=== PATIENT | male | born 1990 | race Caucasian/White ===

== ENCOUNTER → 2021-12-03 | Outpatient (CLI) | payer OTHER ==
[2021-12-03 18:33] LABS: Basophils # (A) 0.05 X 10*3/uL (0.00-0.10); Basophils % (A) 0.8 %; Eosinophils # (A) 0.24 X 10*3/uL (0.04-0.35); Eosinophils % (A) 3.8 %; HCT 42.3 % (39.6-50.0); Immature Grans, Automated 0.2 %; Lymphocytes # (A) 2.15 X 10*3/uL (0.90-5.00); MCH 29.9 pg (27.0-32.0); MCHC 35.5 g/dL (32.0-37.0); MCV 84.3 fL (80.0-97.0); Mean Platelet Volume 10.8 fL (9.5-12.2); Monocytes # (A) 0.45 X 10*3/uL (0.20-1.00); Monocytes % (A) 7.1 %; NRBC Per 100 WBC 0 /100 WBCS (0.0-0.0); Neutrophils # (A) 3.43 X 10*3/uL (1.80-7.70); Neutrophils % (A) 54.1 %; Platelet Count 248 X 10*3/uL (140-440); RBC 5.02 X 10*6/uL (4.40-5.60); RDW 11.8 % (11.5-14.5); WBC 6.33 X 10*3/uL (4.50-10.00)
[2021-12-03 18:42] LABS: ALT 15 U/L (10-49); AST 27 U/L (14-35); African American GFR (CKD) 117.4 (60.0-200.0); Albumin 5.1 g/dL (3.8-4.9); Albumin/Globulin Ratio 1.96 (1.60-3.17); Alkaline Phosphatase 77 U/L (41-126); Blood Urea Nitrogen 11.6 mg/dL (9.0-27.0); Carbon Dioxide 25.8 mmol/L (20.0-27.5); Chloride 103 mmol/L (96-109); Chol/HDL Ratio 4.46 Ratio; Globulin 2.6 g/dL (1.6-3.3); Glucose 86 mg/dL (70-110); LDL Cholesterol,Calculated 106.4 mg/dL (0.0-131.0); Non-African American GFR(CKD) 101.3 (60.0-200.0); Potassium 4.2 mmol/L (3.5-5.5); Sodium 141 mmol/L (135-145); Total Protein 7.7 g/dL (6.2-8.2)
== END | disposition home or self-care (01) ==
LOC: LABWHC1 11:31
PROVIDERS: ATTEND Family Medicine
DX: Z00.00 Encounter for general adult medical examination without abnormal findings (principal); Z11.59 Encounter for screening for other viral diseases
CPT/HCPCS: 36415; 80053; 80061; 84443; 85025; 86803

== ENCOUNTER 2022-01-13 12:07 | Inpatient (IN) | payer MEDICAID, OTHER ==
--- NOTE | 2022-01-13 13:53 | ED ---
General Adult HPI - General Chief complaint: Psychiatric Symptoms Stated complaint: Petition Time Seen by Provider: 01/13/22 13:35 Source: patient, police, RN notes reviewed, old records reviewed Mode of arrival: ambulatory Limitations: no limitations - History of Present Illness Initial comments: This is a 31-year-old male presents emergency Department under a court order. Mother has petitioned the patient to be evaluated. According to the petition patient is become obsessed with cleaning and continually bug bombs the house which is upsetting to the family. Patient also may statement to the grandmother that he was going to kill his parents. Patient states he didn't mean that he was just saying it because he was upset with his parents. Patient denies needing to be here he states he feels fine he is just trying to keep the area of the house that he lives in clean dizziness afraid of getting bedbugs again. Patient denies any suicidal or homicidal ideations. Patient states he did spend [facility] in [facility]. Patient states he smokes pot but denies any other drug use denies any alcohol. Patient denies any physical complaints today. - Related Data Home Medications Medication Instructions Recorded Confirmed Triamcinolone 0.1% Cream [Kenalog 1 applic TOPICAL BID 01/13/22 01/13/22 0.1% Cream] Allergies Allergy/AdvReac Type Severity Reaction Status Date / Time No Known Allergies Allergy Verified 01/13/22 14:22 Review of Systems ROS Statement: Those systems with pertinent positive or pertinent negative responses have been documented in the HPI. ROS Other: All systems not noted in ROS Statement are negative. Past Medical History Past Medical History: Unable to Obtain Past Surgical History: Tonsillectomy Past Psychological History: Unable to Obtain Smoking Status: Current some day smoker Past Alcohol Use History: Occasional Past Drug Use History: Marijuana General Exam - General Exam Comments Initial Comments: GENERAL: Patient is well-developed and well-nourished. Patient is nontoxic and well- hydrated and is in mild distress. ENT: Neck is soft and supple. No significant lymphadenopathy is noted. Oropharynx is clear. Moist mucous membranes. Neck has full range of motion without eliciting any pain. EYES: The sclera were anicteric and conjunctiva were pink and moist. Extraocular movements were intact and pupils were equal round and reactive to light. Eyelids were unremarkable. PULMONARY: Unlabored respirations. Good breath sounds bilaterally. No audible rales rhonchi or wheezing was noted. CARDIOVASCULAR: There is a regular rate and rhythm without any murmurs gallops or rubs. ABDOMEN: Soft and nontender with normal bowel sounds. SKIN: Skin is clear with no lesions or rashes and otherwise unremarkable. NEUROLOGIC: Patient is alert and oriented x3. Cranial nerves II through XII are grossly intact. Motor and sensory are also intact. Normal speech, volume and content. Symmetrical smile. MUSCULOSKELETAL: Normal extremities with adequate strength and full range of motion. LYMPHATICS: No significant lymphadenopathy is noted PSYCHIATRIC: Normal psychiatric evaluation. Patient denies wanting to harm anybody else or himself. Limitations: no limitations Course Vital Signs 01/13/22 13:07 Temperature 98.6 F Pulse Rate 64 Respiratory 20 Rate Blood Pressure 146/90 O2 Sat by Pulse 100 Oximetry Medical Decision Making - Medical Decision Making EPS evaluated the patient and determined the patient needed to be admitted. I did fill out a clinical certification on the patient. - Lab Data Lab Results 01/13/22 01/13/22 Range/Units 13:49 17:30 Urine Opiates Screen Not Detected (NotDetected) Ur Oxycodone Screen Not Detected (NotDetected) Urine Methadone Screen Not Detected (NotDetected) Ur Propoxyphene Screen Not Detected (NotDetected) Ur Barbiturates Screen Not Detected (NotDetected) U Tricyclic Antidepress Not Detected (NotDetected) Ur Phencyclidine Scrn Not Detected (NotDetected) Ur Amphetamines Screen Not Detected (NotDetected) U Methamphetamines Scrn Not Detected (NotDetected) U Benzodiazepines Scrn Not Detected (NotDetected) Urine Cocaine Screen Not Detected (NotDetected) U Marijuana (THC) Screen Detected H (NotDetected) Coronavirus (PCR) Not Detected (Not Detectd) Disposition Clinical Impression: Acute psychosis Disposition: ADMITTED IP TO THIS HOSP Referrals: Prashant Arnold MD [Primary Care Provider] - 1-2 days Time of Disposition: 17:58
[2022-01-13 14:51] LABS: Amphetamine Screen,Urine Not Detected (NotDetected); Barbiturate Screen,Urine Not Detected (NotDetected); Benzodiazepines Screen,Urine Not Detected (NotDetected); Cocaine Screen,Urine Not Detected (NotDetected); Methadone Screen, Urine Not Detected (NotDetected); Opiate Screen,Urine Not Detected (NotDetected); Oxycodone Screen, Urine Not Detected (NotDetected); Phencyclidine Screen,Urine Not Detected (NotDetected); Tricyclic Antidepressant,Urine Not Detected (NotDetected); Urn Cannabinoid Scrn Detected (NotDetected)
[2022-01-13] MEDS ORDERED: MAG HYDROX/AL HYDROX/SIMETH 30 ML CUP PO PRN (19:47)
[2022-01-13] MEDS ORDERED: ACETAMINOPHEN TAB 325 MG TAB PO PRN (19:47)
[2022-01-13] MEDS ORDERED: HALOPERIDOL LACTATE 5 MG/ML 1 ML VIAL IM PRN (19:47)
[2022-01-13] MEDS ORDERED: MAGNESIUM HYDROXIDE 2,400 MG/10 ML CUP PO PRN (19:47)
[2022-01-13] MEDS ORDERED: LORazepam 2 MG/ML INJ IM PRN (19:49)
[2022-01-14 05:45] LABS: Appearance,Urine Clear (Clear); Bilirubin,Urine Negative (Negative); Blood,Urine Negative (Negative); Color,Urine Colorless; Glucose,Urine (UA) Negative (Negative); Ketones,Urine Negative (Negative); Leukocyte Esterase,Urine Negative (Negative); Nitrite,Urine Negative (Negative); Protein,Urine Negative (Negative); Specific Gravity,Urine 1.009 (1.001-1.035); Urobilinogen,Urine <2.0 mg/dL (<2.0)
[2022-01-14] MEDS: NICOTINE 14MG/24HR PATCH TRANSDERM SCH (09:23)
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
--- NOTE | 2022-01-15 01:03 | P.MDCNMH ---
History of Present Illness H&P Date: 01/14/22 Past Medical History Past Medical History: Unable to Obtain Past Surgical History: Tonsillectomy Past Psychological History: Unable to Obtain Smoking Status: Current some day smoker Past Alcohol Use History: Occasional Past Drug Use History: Marijuana Medications and Allergies Home Medications Medication Instructions Recorded Confirmed Type Triamcinolone 0.1% Cream [Kenalog 1 applic TOPICAL BID 01/13/22 01/13/22 History 0.1% Cream] Allergies Allergy/AdvReac Type Severity Reaction Status Date / Time No Known Allergies Allergy Verified 01/13/22 14:22 Physical Exam Vitals: Vital Signs Temp Pulse Resp BP Pulse Ox 01/13/22 21:31 97.5 F L 52 L 16 132/82 98
--- NOTE | 2022-01-15 12:38 | P.PN ---
Progress Note - Text Progress Note Date: 01/15/22 Interval History: Patient was seen wandering the hallways and was directable and agreeable to speak with telegraphic typewriter operator in the office. Currently, the patient is not reporting any suicidal or homicidal ideation, intention, and/or plan. He denies any auditory or visual hallucinations. He reports no paranoia or other delusions. He continues to desire no medications. He reports that he will wait for the court to decide this. However, he states that if he was to be court-ordered medications, he will take medications willingly. He denies any issues with sleep or appetite. She does not express any concerns for bug infestation at this time. Mental Status Exam: General Appearance: Patient appears to be stated age is alert, directable, and cooperative. Behavior: Patient is calmly seated without any agitated behavior. Speech: Patient's speech is fluent and nonpressured. Mood/Affect: Mood is improving mildly, affect is congruent and constricted. Suicidality/Homicidality: Patient denies having any suicidal or homicidal ideation intent or plan. Perceptions: Patient denies any visual hallucinations and denies any auditory hallucinations Though content/process: There is no evidence of any delusional thought content and thought process is linear and goal-directed. Memory and concentration: AOX3, grossly intact for the purposes of this session Judgment and insight: Improving mildly Vital Signs Temp 97.9 F 01/15/22 06:44 Pulse 61 01/15/22 06:44 Resp 16 01/15/22 06:44 BP 111/64 01/15/22 06:44 Pulse Ox 98 01/13/22 21:31 FiO2 Assessment Acute psychosis - suspect cannabis induced psychosis versus underlying chronic schizophrenia/bipolar disorder Cannabis use disorder Plan: -Patient continues to meet criteria for inpatient psychiatric admission for symptom stabilization and safety. The patient has been petitioned and certified. -Medications: Patient is refusing any medications at this time. We are awaiting a court hearing. -When necessary Ativan and Haldol for agitation/aggression. -NRT - nicotine patch -SW on board for discharge planning. Encouraged the patient to participate in milieu.
[2022-01-15] MEDS: NICOTINE 14MG/24HR PATCH TRANSDERM SCH (15:32)
[2022-01-16] MEDS: NICOTINE 14MG/24HR PATCH TRANSDERM SCH (10:03)
--- NOTE | 2022-01-16 20:05 | P.PN ---
Progress Note - Text Progress Note Date: 01/16/22 Interval history: Patient was seen wandering the hallways, and is superficially cooperative on evaluation. He reports good mood and denies any concerns at this time, appears guarded but polite. He is currently refusing medications and is awaiting court. At this time, patient denies any suicidal or homicidal ideation, intent or plan. Denies any auditory or visual hallucinations. Mental status exam: General Appearance: Patient appears to be stated age, dressed in hospital gown, fair grooming and hygiene. Behavior: Patient is calm without any agitated behavior. Speech: Patient's speech is fluent and non-pressured. Mood/Affect: Patient reports their mood is "good", affect is congruent and euthymic. Suicidality/Homicidality: Patient denies having any homicidal ideation intent or plan. He denies any suicidal ideation, intent or plan. Perceptions: Patient denies any visual hallucinations and denies any auditory hallucinations. Though content/process: No delusional thoughts expressed to me today. Thoughts are linear. Memory and concentration: AOX3, grossly intact for the purposes of this session. Judgment and insight: improving Assessment/Plan: Continue with current diagnosis. Patient continues to meet criteria for inpatient psychiatric admission for symp vicky stabilization and safety. Patient will be maintained on current psychotropic medication regimen. Monitor for medication compliance and for any psychotropic medication side effects. Will continue to monitor ongoing response to treatment. Encouraged participation in milieu.
[2022-01-17] MEDS: LORazepam 1 MG TAB PO PRN ×3 (02:52→19:10)
[2022-01-17] MEDS: haloperidoL 5 MG TAB PO PRN ×2 (03:52→19:40)
[2022-01-17] MEDS: NICOTINE 14MG/24HR PATCH TRANSDERM SCH (08:57)
--- NOTE | 2022-01-17 15:09 | P.PN ---
Progress Note - Text Progress Note Date: 01/17/22 Interval history: Patient was seen attending group and is agreeable to speaking with this assembly instructions writer. He reports good mood and denies any concerns at this time, appears guarded but polite. He is currently refusing to start scheduled medications, but last night he did accept PRN Haldol 5 mg po x1 at around 4am and PRN Ativan 2 mg po x1 at around 9am due to being upset over a roommate issue. He has been calm so far today since receiving these medications overnight, however is still guarded. At this time, patient denies any suicidal or homicidal ideation, intent or plan. Denies any auditory or visual hallucinations. He denies medication side effects. Mental status exam: General Appearance: Patient appears to be stated age, dressed in hospital gown, fair grooming and hygiene. Behavior: Patient is calm without any agitated behavior, still guarded. Speech: Patient's speech is fluent and non-pressured. Mood/Affect: Patient reports their mood is "good", affect is congruent and euthymic. Suicidality/Homicidality: Patient denies having any homicidal ideation intent or plan. He denies any suicidal ideation, intent or plan. Perceptions: Patient denies any visual hallucinations and denies any auditory hallucinations. Though content/process: No delusional thoughts expressed to me today. Thoughts are linear. Memory and concentration: AOX3, grossly intact for the purposes of this session. Judgment and insight: improving Assessment/Plan: Continue with current diagnosis. Patient continues to meet criteria for inpatient psychiatric admission for symptom stabilization and safety. Patient will be maintained on current psychotropic medication regimen. Monitor for medication compliance and for any psychotropic medication side effects. Will continue to monitor ongoing response to treatment. Encouraged participation in milieu.
[2022-01-18] MEDS: LORazepam 1 MG TAB PO PRN ×3 (08:43→21:44)
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
[2022-01-18] MEDS: DIVALPROEX ER 500 MG TAB.ER.24H PO SCH (19:59)
[2022-01-18] MEDS: haloperidoL 5 MG TAB PO PRN (20:00)
[2022-01-19 06:34] VITALS: PULSE 79; RESP 14; TEMP 97.6
[2022-01-19 08:22] VITALS: BP 125/79
[2022-01-19] MEDS: LORazepam 1 MG TAB PO PRN (08:22)
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
[2022-01-19] MEDS ORDERED: LORazepam 1 MG TAB PO PRN (12:13)
[2022-01-19] MEDS ORDERED: LORazepam 2 MG/ML INJ IM PRN (12:13)
[2022-01-19] MEDS: DIVALPROEX ER 500 MG TAB.ER.24H PO SCH (20:05)
[2022-01-20 11:17] LABS: ALT 19 U/L (4-49); AST 34 U/L (17-59); African American GFR (CKD) >90 (>60 ml/min/1.73 sqM); Albumin 5.1 g/dL (3.5-5.0); Alkaline Phosphatase 66 U/L (38-126); Anion Gap 16 mmol/L; Blood Urea Nitrogen 11 mg/dL (9-20); Carbon Dioxide 25 mmol/L (22-30); Chloride 98 mmol/L (98-107); Glucose 89 mg/dL (74-99); Non-African American GFR(CKD) >90 (>60 ml/min/1.73 sqM); Potassium 3.9 mmol/L (3.5-5.1); Sodium 139 mmol/L (137-145); Total Bilirubin 0.7 mg/dL (0.2-1.3); Total Protein 7.6 g/dL (6.3-8.2)
[2022-01-20 11:22] LABS: Valproic Acid (Depakene) 81.3 ug/mL
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
== END 2022-01-20 14:02 | disposition home or self-care (01) | DRG 885 ==
LOC: EC 12:07 → 3MHU 19:43
PROVIDERS: ADMIT Psychiatry & Neurology Psychiatry; ATTEND Psychiatry & Neurology Psychiatry
DX: F23 Brief psychotic disorder (principal); F12.90 Cannabis use, unspecified, uncomplicated; F16.90 Hallucinogen use, unspecified, uncomplicated; F17.200 Nicotine dependence, unspecified, uncomplicated; Z87.820 Personal history of traumatic brain injury; Z91.410 Personal history of adult physical and sexual abuse; Z20.822 Contact with and (suspected) exposure to COVID-19
CPT/HCPCS: 80053; 80164; 80306; 81003; 82075; 87635; 99285

== ENCOUNTER → 2022-11-10 | Outpatient (CLI) | payer OTHER ==
[2022-11-10 15:36] LABS: Basophils # (A) 0.03 X 10*3/uL (0.00-0.10); Basophils % (A) 0.6 %; Eosinophils # (A) 0.27 X 10*3/uL (0.04-0.35); Eosinophils % (A) 5.5 %; HCT 41.3 % (39.6-50.0); HGB 14.2 d/dL (12.0-15.0); Lymphocytes # (A) 1.71 X 10*3/uL (0.90-5.00); Lymphocytes % (A) 35.1 %; MCH 29.5 pg (27.0-32.0); MCHC 34.4 d/dL (32.0-37.0); MCV 85.9 FL (80.0-97.0); Mean Platelet Volume 10.7 FL (9.5-12.2); Monocytes # (A) 0.43 X 10*3/uL (0.20-1.00); Monocytes % (A) 8.8 %; NRBC Per 100 WBC 0 X 10*3/uL (0.00-0.01); Neutrophils # (A) 2.42 X 10*3/uL (1.80-7.70); Neutrophils % (A) 49.8 %; Platelet Count 211 X 10*3/uL (140-440); RBC 4.81 X 10*6/uL (4.40-5.60); RDW 11.4 % (11.5-14.5); WBC 4.87 X 10*3/uL (4.50-10.00)
[2022-11-10 16:11] LABS: ALT 18 U/L (10-49); AST 22 U/L (14-35); Albumin 4.8 d/dL (3.8-4.9); Albumin/Globulin Ratio 2.09 Ratio (1.60-3.17); Alkaline Phosphatase 68 U/L (41-126); Blood Urea Nitrogen 8.2 mg/dL (9.0-27.0); Calcium 9.9 mg/dL (8.7-10.3); Carbon Dioxide 27.9 mmol/L (21.6-31.8); Chloride 102 mmol/L (96-109); Chol/HDL Ratio 3.43 Ratio; Globulin 2.3 d/dL (1.6-3.3); Glucose 90 mg/dL (70-110); LDL Cholesterol,Calculated 67.6 mg/dL (0.0-131.0); Potassium 4.9 mmol/L (3.5-5.5); Sodium 140 mmol/L (135-145); T4, Free (Free Thyroxine) 1.27 ng/dL (0.80-1.80); Total Bilirubin 0.6 mg/dL (0.3-1.2); Total Protein 7.1 d/dL (6.2-8.2)
[2022-11-10 17:36] LABS: Valproic Acid (Depakene) 29.1 UG/ML (50.0-100.0)
== END | disposition home or self-care (01) ==
LOC: LABWHC1 10:21
PROVIDERS: ATTEND Family Medicine
DX: Z00.00 Encounter for general adult medical examination without abnormal findings (principal); Z11.4 Encounter for screening for human immunodeficiency virus [HIV]; F25.1 Schizoaffective disorder, depressive type
CPT/HCPCS: 36415; 80053; 80061; 80164; 84439; 84443; 85025; 87390